=== PATIENT | male | born 1955 | race Caucasian/White ===

== ENCOUNTER 2019-10-17 07:54 | Inpatient (IN) | payer MEDICAID, MEDICARE ==
[2019-10-17] VITALS (8 sets, daily range): BP systolic 89–119; BP diastolic 45–78
[~2019-10-17] VITALS: Ht 165.1 cm; Wt 58.9 kg
[~2019-10-17 07:54] MED LIST: BUDE10.2 INH; CLA10T PO; DOXE25CA4 PO; FLO0.4C PO; GABA-532 PO; HYDR-3964 PO; IPRA3AMP31 NEB; NICO-731 TP; NOR5T PO; PANT-47 PO; RISP3TAB11 PO; SPIIN INH
[2019-10-17] MEDS ORDERED: octreotide inj. 1,250 MCG in normal saline 250ml IV soln 250 ML IV ONE (08:50)
[2019-10-17] MEDS ORDERED: pantoprazole 40 MG vial IV ONE (08:50)
[2019-10-17 09:08] LABS: BASOPHILS # (AUTO) 0.1 X10'3 (0-0.2); BASOPHILS % (AUTO) 0.5 % (0-1); EOSINOPHILS % (AUTO) 0 % (0-6); HEMATOCRIT 52.1 % (42.0-52.0); LYMPHOCYTES # (AUTO) 1.2 X10'3 (1.1-4.8); LYMPHOCYTES % (AUTO) 7.3 % (21-51); MEAN CORPUSCULAR HEMOGLOBIN 33.9 PG (27.0-31.0); MEAN CORPUSCULAR HGB CONC 35.1 g/dL (33.0-36.5); MEAN CORPUSCULAR VOLUME 96.6 FL (78-98); MONOCYTES # (AUTO) 2.1 X10'3 (0-0.9); MONOCYTES % (AUTO) 13.2 % (2-12); NEUTROPHILS # (AUTO) 12.6 X10'3 (1.8-7.7); PLATELET COUNT 314 X10'3 (140-440); RED BLOOD COUNT 5.39 X10'6 (4.70-6.10); RED CELL DISTRIBUTION WIDTH 13.7 % (11.5-14.5)
[2019-10-17 09:10] LABS: HEMOGLOBIN 18.3 g/dl (14.0-17.9)
[2019-10-17 09:21] LABS: OCCULT BLOOD STOOL NEGATIVE (Neg)
--- NOTE | 2019-10-17 09:21 | NUR ---
TANK SAYS TO WAIT ON DRIPS UNTIL SHE CONSULTS
[2019-10-17 09:24] LABS: ALANINE AMINOTRANSFERASE 24 U/L (12-78); ALBUMIN 4.4 G/DL (3.4-5.0); ALBUMIN/GLOBULIN RATIO 1.1 (1.1-1.5); ALKALINE PHOSPHATASE 81 IU/L (46-116); ANION GAP 18 (8-16); ASPARTATE AMINO TRANSFERASE 34 U/L (10-37); BILIRUBIN,TOTAL 1.2 MG/DL (0.1-1.0); BLOOD UREA NITROGEN 24 MG/DL (7-18); BUN/CREATININE RATIO 11.3 (5.4-32.0); CHLORIDE 82 MMOL/L (99-107); CREATININE 2.13 MG/DL (0.60-1.10); GLUCOSE 133 MG/DL (70-104); LIPASE 55 U/L (73-393); SODIUM 130 MMOL/L (135-145); TOTAL CARBON DIOXIDE 30.4 MMOL/L (24-32); TOTAL PROTEIN 8.5 G/DL (6.4-8.2); eGFR 31 ML/MIN
[2019-10-17 09:37] LABS: TROPONIN I 0.22 NG/ML (0.0-0.05)
[2019-10-17] MEDS ORDERED: normal saline 1000ML IV soln IVB ONE (09:45)
[2019-10-17] MEDS ORDERED: potassium Cl 10 mEq/100mL bag IV ONE (09:45)
[2019-10-17 10:05] LABS: TOTAL CELLS COUNTED 100
[2019-10-17 10:06] LABS: PLATELET ESTIMATE NORMAL
[2019-10-17 10:30] LABS: CLARITY,URINE SLIGHTLY CLOUDY (Clear); COLOR,URINE YELLOW (Yellow); GLUCOSE, URINE NEGATIVE (Neg); KETONES,URINE >=80 mg/dl (Neg); LEUKOCYTE ESTERASE ,URINE NEGATIVE (Neg); NITRITES, URINE NEGATIVE (Neg); OCCULT BLOOD,URINE MODERATE (Neg); PROTEIN,URINE 30 mg/dl (Neg); UROBILINOGEN,URINE 0.2 E.U/dL (0.2-1.0)
[2019-10-17 10:31] LABS: UA COLLECTION TYPE NON-SPECIFIED
[2019-10-17 10:36] LABS: SQUAMOUS EPITHELIAL CELL,UR FEW /LPF (FEW)
[2019-10-17 10:37] LABS: MUCUS STRANDS FEW /LPF (Neg)
[2019-10-17 10:38] LABS: TRANSITIONAL EPI CELLS,URINE FEW /HPF
[2019-10-17 10:39] LABS: RBC,URINE 0-2 /HPF (0-2); WBC,URINE 0-4 /HPF (0-4)
[2019-10-17 10:40] LABS: RENAL CELLS, URINE FEW /HPF
[2019-10-17 10:43] LABS: BACTERIA,URINE FEW /HPF (Neg); COARSE GRANULAR CAST 0-3 /LPF (NEGATIVE)
[2019-10-17] MEDS ORDERED: potassium CL 10mEq/100ml bag 100 ML IV PRN (11:00)
[2019-10-17] MEDS ORDERED: magnesium 4gm in 100ml NS 100 ML IV PRN (11:00)
[2019-10-17] MEDS ORDERED: magnesium Cl slow-release 64mg tablet PO PRN (11:00)
[2019-10-17] MEDS ORDERED: magnesium 2GM in 50ml NS 50 ML IV PRN (11:00)
[2019-10-17] MEDS ORDERED: potassium Cl 20 mEq SR tablet PO PRN (11:00)
[2019-10-17 11:07] LABS: HEMOGLOBIN 15.2 g/dl (14.0-17.9)
[2019-10-17 11:09] LABS: HEMATOCRIT 42.8 % (42.0-52.0); MEAN CORPUSCULAR HEMOGLOBIN 34.4 PG (27.0-31.0); MEAN CORPUSCULAR HGB CONC 35.6 g/dL (33.0-36.5); MEAN CORPUSCULAR VOLUME 96.9 FL (78-98); MEAN PLATELET VOLUME 7.5 FL (7.4-10.4); PLATELET COUNT 232 X10'3 (140-440); RED BLOOD COUNT 4.42 X10'6 (4.70-6.10); RED CELL DISTRIBUTION WIDTH 13.8 % (11.5-14.5); WHITE BLOOD COUNT 17.4 X10'3 (4.5-11.0)
[2019-10-17 11:19] LABS: ALANINE AMINOTRANSFERASE 15 U/L (12-78); ALBUMIN 3.4 G/DL (3.4-5.0); ALKALINE PHOSPHATASE 65 IU/L (46-116); ANION GAP 11 (8-16); ASPARTATE AMINO TRANSFERASE 34 U/L (10-37); BILIRUBIN,TOTAL 0.9 MG/DL (0.1-1.0); BLOOD UREA NITROGEN 22 MG/DL (7-18); BUN/CREATININE RATIO 13.2 (5.4-32.0); CALCIUM 8.1 MG/DL (8.5-10.1); CHLORIDE 90 MMOL/L (99-107); CREATININE 1.67 MG/DL (0.60-1.10); GLUCOSE 92 MG/DL (70-104); SODIUM 131 MMOL/L (135-145); TOTAL CARBON DIOXIDE 29.9 MMOL/L (24-32); TOTAL PROTEIN 6.7 G/DL (6.4-8.2); eGFR 41 ML/MIN
[2019-10-17] MEDS: pantoprazole 40MG/NS 100ML BAG 100 ML IV SCH ×3 (11:48→21:58)
[2019-10-17] MEDS: normal saline 1000ml 1,000 ML IV SCH ×3 (11:49→21:52)
[2019-10-17] MEDS ORDERED: OMEP-50 PO (12:09)
[2019-10-17] MEDS ORDERED: BUPR200T3 PO (12:09)
[2019-10-17] MEDS ORDERED: TRAZ-219 PO (12:09)
[2019-10-17] MEDS ORDERED: ALBU18HF2 PO (12:09)
[2019-10-17] MEDS ORDERED: FLUT1BLS4 PO (12:09)
--- NOTE | 2019-10-17 12:15 | NUR ---
Recieved report from ER Nurse DARRELL Reyes
[2019-10-17] MEDS ORDERED: pneumococcal 23-VAL P-sac vacc 25 mcg/0.5ml vial IMVAC ONE ×2 (12:30→17:00)
--- NOTE | 2019-10-17 14:17 | NUR ---
Arrived to 3027Z @ 1235 via gurney, he was able to transfer to bed with sba. Brought up by DARRELL Reyes
[2019-10-17] MEDS: potassium CL 10mEq/100ml bag 100 ML IV PRN ×7 (14:34→23:38)
[2019-10-17] MEDS ORDERED: fentaNYL/PF 50MCG/1 ML 2ML syringe ONE (17:12)
[2019-10-17] MEDS ORDERED: MIDAZolam 5mg/5ml vial ONE (17:12)
[2019-10-17] MEDS ORDERED: LIDOcaine Viscous 15ml cup ONE (17:12)
--- NOTE | 2019-10-17 18:36 | NUR ---
Problems reprioritized. Patient report given, questions answered & plan of care reviewed with DARRELL Cox.
--- NOTE | 2019-10-17 18:55 | NUR ---
Patient in room PCU 3025. I have received report from Fidel RAMÍREZ and had the opportunity to ask questions and assume patient care. patient just returned from the GI lab. He is still sleeping and is now resting with no sign of distress.
[2019-10-17] MEDS ORDERED: albuterol 2.5 MG/3 ML nebule NEB PRN (19:00)
[2019-10-17] MEDS ORDERED: fluconazole-Diflucan 100MG/NS 50 ML IV SCH (19:00)
[2019-10-17] MEDS ORDERED: ipratropium 0.5 MG/2.5ML nebule IH SCH (20:00)
[2019-10-17] MEDS ORDERED: ipratropium/albuterol 3ml nebule NEB SCH (21:00)
[2019-10-17] MEDS: budesonide 0.5mg/2ml UD nebule IH SCH (22:17)
[2019-10-18] MEDS: potassium CL 10mEq/100ml bag 100 ML IV PRN (00:50)
[2019-10-18 02:00] VITALS: BP 128/81
[2019-10-18] MEDS: pantoprazole 40MG/NS 100ML BAG 100 ML IV SCH ×2 (02:00→07:15)
[2019-10-18] MEDS: ipratropium/albuterol 3ml nebule NEB SCH ×2 (03:02→08:16)
[2019-10-18 06:00] VITALS: BP 113/69
--- NOTE | 2019-10-18 06:20 | NUR ---
Problems reprioritized. Patient report given, questions answered & plan of care reviewed with Lucien Bonilla RN.Patient is resting with no aparaent distress.
[2019-10-18 07:12] LABS: BASOPHILS % (AUTO) 0.1 % (0-1); EOSINOPHILS % (AUTO) 0 % (0-6); HEMOGLOBIN 12.9 g/dl (14.0-17.9); LYMPHOCYTES # (AUTO) 1.3 X10'3 (1.1-4.8); MEAN CORPUSCULAR HEMOGLOBIN 34.5 PG (27.0-31.0); MEAN CORPUSCULAR HGB CONC 34.9 g/dL (33.0-36.5); MEAN CORPUSCULAR VOLUME 98.6 FL (78-98); MONOCYTES # (AUTO) 1.4 X10'3 (0-0.9); NEUTROPHILS # (AUTO) 8.2 X10'3 (1.8-7.7); NEUTROPHILS % (AUTO) 74.9 % (42-75); PLATELET COUNT 199 X10'3 (140-440); RED BLOOD COUNT 3.75 X10'6 (4.70-6.10); RED CELL DISTRIBUTION WIDTH 14.1 % (11.5-14.5); WHITE BLOOD COUNT 10.9 X10'3 (4.5-11.0)
[2019-10-18] MEDS: tamsulosin 0.4mg capsule PO SCH (07:15)
[2019-10-18] MEDS: buPROPion SR 100mg tab PO SCH (07:16)
[2019-10-18 07:18] LABS: ALBUMIN 2.8 G/DL (3.4-5.0); ANION GAP 13 (8-16); BLOOD UREA NITROGEN 13 MG/DL (7-18); BUN/CREATININE RATIO 14.3 (5.4-32.0); CALCIUM 7.6 MG/DL (8.5-10.1); CHLORIDE 99 MMOL/L (99-107); CREATININE 0.91 MG/DL (0.60-1.10); GLUCOSE 86 MG/DL (70-104); MAGNESIUM 1.6 MG/DL (1.5-2.4); POTASSIUM 3.4 MMOL/L (3.5-5.1); SODIUM 133 MMOL/L (135-145); TOTAL CARBON DIOXIDE 20.9 MMOL/L (24-32); eGFR 83 ML/MIN
[2019-10-18] MEDS ORDERED: traZODone 150mg tablet PO SCH (08:00)
[2019-10-18] MEDS ORDERED: fluconazole 100mg tablet PO SCH (08:00)
[2019-10-18] MEDS: budesonide 0.5mg/2ml UD nebule IH SCH ×2 (08:15→20:30)
[2019-10-18] MEDS: potassium Cl 20 mEq SR tablet PO PRN (08:35)
[2019-10-18] MEDS: K and/or MAG REPLACEMENT MC SCH (08:40)
--- NOTE | 2019-10-18 08:47 | NUR ---
HR sustaining 160s, a-fib w/RVR, spoke with Dr. Jay, will get EKG stat, cardizem 5mg IVP and urine tox screen
[2019-10-18] MEDS ORDERED: diltiazem 5mg/ml 5ml inj. IV ONE ×2 (08:50→17:45)
[2019-10-18 11:00] VITALS: BP 103/66
[2019-10-18 12:15] LABS: URINE AMPHETAMINE SCREEN NEGATIVE (Neg); URINE BARBITUATE SCREEN NEGATIVE (Neg); URINE BENZODIAZEPINES SCREEN POSITIVE (Neg); URINE CANNABINOID SCREEN POSITIVE (Neg); URINE COCAINE SCREEN NEGATIVE (Neg); URINE METHADONE SCREEN NEGATIVE (Neg); URINE OPIATE SCREEN NEGATIVE (Neg); URINE PHENCYCLIDINE SCREEN NEGATIVE (Neg)
[2019-10-18] MEDS: fluconazole 100mg tablet PO SCH (12:24)
[2019-10-18 15:00] VITALS: BP 94/62
[2019-10-18] MEDS: levalbuterol 0.63mg/3ml nebule IH SCH ×2 (15:12→20:30)
--- NOTE | 2019-10-18 17:03 | NUR ---
HR [id number] again, EKG shows a-fib w/RVR. Dr Jay aware, gave 5mg IVP diltiazem per order, will continue to monitor
[2019-10-18] MEDS ORDERED: diltiazem 30mg tablet PO ONE (17:45)
[2019-10-18] MEDS: ondansetron/PF 4mg/2ml inj IV PRN (17:55)
--- NOTE | 2019-10-18 18:25 | NUR ---
Problems reprioritized. Patient report given, questions answered & plan of care reviewed with DARRELL Lomeli.
[2019-10-18 19:00] VITALS: BP 95/57
[2019-10-18] MEDS: diltiazem 30mg tablet PO SCH (20:00)
[2019-10-18 23:00] VITALS: BP 102/75
[2019-10-19] MEDS: levalbuterol 0.63mg/3ml nebule IH SCH ×4 (02:50→20:06)
[2019-10-19] MEDS: potassium Cl 20 mEq SR tablet PO PRN ×2 (02:52→07:40)
[2019-10-19] MEDS: diltiazem 30mg tablet PO SCH ×4 (02:52→20:39)
[2019-10-19 03:00] VITALS: BP 118/75
[2019-10-19 06:06] LABS: BASOPHILS % (AUTO) 0.3 % (0-1); EOSINOPHILS % (AUTO) 0.5 % (0-6); HEMATOCRIT 36.8 % (42.0-52.0); HEMOGLOBIN 12.6 g/dl (14.0-17.9); LYMPHOCYTES % (AUTO) 24.9 % (21-51); MEAN CORPUSCULAR HGB CONC 34.3 g/dL (33.0-36.5); MEAN CORPUSCULAR VOLUME 98.9 FL (78-98); MONOCYTES # (AUTO) 1.1 X10'3 (0-0.9); MONOCYTES % (AUTO) 14.2 % (2-12); NEUTROPHILS # (AUTO) 4.8 X10'3 (1.8-7.7); NEUTROPHILS % (AUTO) 60.1 % (42-75); PLATELET COUNT 203 X10'3 (140-440); RED BLOOD COUNT 3.72 X10'6 (4.70-6.10); RED CELL DISTRIBUTION WIDTH 13.7 % (11.5-14.5); WHITE BLOOD COUNT 7.9 X10'3 (4.5-11.0)
[2019-10-19 06:11] LABS: ALBUMIN 2.8 G/DL (3.4-5.0); ANION GAP 7 (8-16); BLOOD UREA NITROGEN 6 MG/DL (7-18); BUN/CREATININE RATIO 7.8 (5.4-32.0); CALCIUM 8.1 MG/DL (8.5-10.1); CHLORIDE 99 MMOL/L (99-107); CREATININE 0.77 MG/DL (0.60-1.10); GLUCOSE 108 MG/DL (70-104); MAGNESIUM 1.6 MG/DL (1.5-2.4); POTASSIUM 3.3 MMOL/L (3.5-5.1); SODIUM 133 MMOL/L (135-145); TOTAL CARBON DIOXIDE 26.8 MMOL/L (24-32); eGFR > 90 ML/MIN
--- NOTE | 2019-10-19 06:17 | NUR ---
Problems reprioritized. Patient report given, questions answered & plan of care reviewed with Olga RAMÍREZ.
[2019-10-19 07:00] VITALS: BP 107/69
--- NOTE | 2019-10-19 07:22 | NUR ---
Patient in room PCU 3025. I have received report from Yani and had the opportunity to ask questions and assume patient care.
[2019-10-19] MEDS: tamsulosin 0.4mg capsule PO SCH (07:39)
[2019-10-19] MEDS: buPROPion SR 100mg tab PO SCH (07:39)
[2019-10-19] MEDS: fluconazole 100mg tablet PO SCH (07:49)
[2019-10-19] MEDS: K and/or MAG REPLACEMENT MC SCH (07:50)
[2019-10-19] MEDS: budesonide 0.5mg/2ml UD nebule IH SCH ×2 (08:00→20:06)
[2019-10-19] MEDS: ondansetron/PF 4mg/2ml inj IV PRN ×3 (08:25→20:42)
--- NOTE | 2019-10-19 08:30 | NUR ---
Patient did not tolerate diet well this AM. Patient continues on full liquid diet and shortly after meal, he began dry heaving and complained of severe nausea. Patient was given IV Zofran with effective results. Diet not advanced, MD is aware and the patient will stay another day for observation. Will continue to monitor.
[2019-10-19 11:00] VITALS: BP 121/82
[2019-10-19 15:00] VITALS: BP 140/80
[2019-10-19 18:00] VITALS: BP 139/80
--- NOTE | 2019-10-19 18:44 | NUR ---
Problems reprioritized. Patient report given, questions answered & plan of care reviewed with Alyssa.
--- NOTE | 2019-10-19 18:45 | NUR ---
Patient in room U 3025. I have received report from DARRELL Espinoza and had the opportunity to ask questions and assume patient care. Pt resting with eyes closed. no complaints at this time. Addendum: 10/19/19 at 1846 by Tiburcio Agarwal RN Amended: Links added.
[2019-10-19 22:00] VITALS: BP 125/81
[2019-10-20] MEDS: diltiazem 30mg tablet PO SCH ×3 (02:09→13:16)
[2019-10-20 02:10] VITALS: BP 106/72
[2019-10-20] MEDS: levalbuterol 0.63mg/3ml nebule IH SCH ×3 (02:16→15:25)
[2019-10-20 05:23] LABS: BASOPHILS % (AUTO) 0.4 % (0-1); EOSINOPHILS # (AUTO) 0.1 X10'3 (0-0.9); EOSINOPHILS % (AUTO) 0.8 % (0-6); HEMATOCRIT 38.7 % (42.0-52.0); HEMOGLOBIN 13.5 g/dl (14.0-17.9); LYMPHOCYTES # (AUTO) 2.3 X10'3 (1.1-4.8); LYMPHOCYTES % (AUTO) 31.2 % (21-51); MEAN CORPUSCULAR HEMOGLOBIN 34.4 PG (27.0-31.0); MEAN CORPUSCULAR HGB CONC 34.9 g/dL (33.0-36.5); MEAN CORPUSCULAR VOLUME 98.7 FL (78-98); MEAN PLATELET VOLUME 6.9 FL (7.4-10.4); MONOCYTES # (AUTO) 1.1 X10'3 (0-0.9); MONOCYTES % (AUTO) 15.1 % (2-12); NEUTROPHILS # (AUTO) 3.8 X10'3 (1.8-7.7); NEUTROPHILS % (AUTO) 52.5 % (42-75); PLATELET COUNT 220 X10'3 (140-440); RED BLOOD COUNT 3.92 X10'6 (4.70-6.10); RED CELL DISTRIBUTION WIDTH 13.4 % (11.5-14.5); WHITE BLOOD COUNT 7.3 X10'3 (4.5-11.0)
[2019-10-20 05:35] LABS: ANION GAP 11 (8-16); BLOOD UREA NITROGEN 6 MG/DL (7-18); BUN/CREATININE RATIO 8.3 (5.4-32.0); CALCIUM 8.4 MG/DL (8.5-10.1); CHLORIDE 97 MMOL/L (99-107); CREATININE 0.72 MG/DL (0.60-1.10); GLUCOSE 118 MG/DL (70-104); MAGNESIUM 1.5 MG/DL (1.5-2.4); POTASSIUM 3.1 MMOL/L (3.5-5.1); SODIUM 130 MMOL/L (135-145); eGFR > 90 ML/MIN
[2019-10-20 06:00] VITALS: BP 153/82
--- NOTE | 2019-10-20 06:35 | NUR ---
Problems reprioritized. Patient report given, questions answered & plan of care reviewed with DARRELL GOMEZ. Addendum: 10/20/19 at 0635 by Tiburcio Agarwal RN Amended: Links added.
[2019-10-20] MEDS: fluconazole 100mg tablet PO SCH (07:16)
[2019-10-20] MEDS: K and/or MAG REPLACEMENT MC SCH (07:16)
[2019-10-20] MEDS: potassium Cl 20 mEq SR tablet PO PRN (07:16)
[2019-10-20] MEDS: buPROPion SR 100mg tab PO SCH (07:17)
[2019-10-20] MEDS: tamsulosin 0.4mg capsule PO SCH (07:17)
[2019-10-20] MEDS: budesonide 0.5mg/2ml UD nebule IH SCH (09:30)
[2019-10-20 09:35] LABS: TOTAL CELLS COUNTED 100
[2019-10-20 09:36] LABS: GIANT PLATELET FEW; PLATELET ESTIMATE NORMAL
[2019-10-20 11:00] VITALS: BP 119/74
[2019-10-20] MEDS ORDERED: DILT240C90 PO (12:25)
[2019-10-20] MEDS ORDERED: FLUC100T9 PO (12:25)
[2019-10-20] MEDS ORDERED: potassium Cl 20 mEq SR tablet PO STA (12:41)
[2019-10-20] MEDS: ondansetron/PF 4mg/2ml inj IV PRN (12:53)
[2019-10-20] MEDS ORDERED: ONDA4TAB6 PO (12:54)
[2019-10-20 15:00] VITALS: BP 134/81
--- NOTE | 2019-10-20 17:04 | NUR ---
DC prescriptions called in to [facility] on [address]
--- NOTE | 2019-10-20 17:30 | NUR ---
Pt discharged to son and son's spouse who are his usual caregivers. IV taken out, Tele dc'd and returned. All belongings taken from room. Pt and family educated on medications and meds called into [facility] in [facility] per son's request. Pt is stable with some intermittent nausea. Dr Jay aware of sodium and potassium levels. Replacement K+ given prior to discharge. All belongings taken from room. All questions answered.
== END 2019-10-20 17:50 | disposition home or self-care (01) | DRG 391 ==
LOC: ER 07:54 → ED HOLD 11:32 → PCU 3S 13:03
PROVIDERS: ADMIT Internal Medicine; ATTEND Internal Medicine
PROC: 0DB58ZX Excision of Esophagus, Via Natural or Artificial Opening Endoscopic, Diagnostic (ICD-10-PCS; principal; 2019-10-17)
PROC: 3E0234Z Introduction of Serum, Toxoid and Vaccine into Muscle, Percutaneous Approach (ICD-10-PCS; 2019-10-17)
DX: K21.0 Gastro-esophageal reflux disease with esophagitis (principal); N17.0 Acute kidney failure with tubular necrosis; K92.0 Hematemesis; E87.1 Hypo-osmolality and hyponatremia; K70.9 Alcoholic liver disease, unspecified; K22.70 Barrett's esophagus without dysplasia; D75.1 Secondary polycythemia; B18.2 Chronic viral hepatitis C; E86.9 Volume depletion, unspecified; F10.20 Alcohol dependence, uncomplicated; E87.6 Hypokalemia; I48.91 Unspecified atrial fibrillation; K44.9 Diaphragmatic hernia without obstruction or gangrene; F12.90 Cannabis use, unspecified, uncomplicated; F17.210 Nicotine dependence, cigarettes, uncomplicated; F31.9 Bipolar disorder, unspecified; M19.90 Unspecified osteoarthritis, unspecified site; R00.0 Tachycardia, unspecified; I10 Essential (primary) hypertension; J44.9 Chronic obstructive pulmonary disease, unspecified; N40.0 Benign prostatic hyperplasia without lower urinary tract symptoms; Z80.1 Family history of malignant neoplasm of trachea, bronchus and lung; Z80.8 Family history of malignant neoplasm of other organs or systems; Z23 Encounter for immunization
CPT/HCPCS: 36415; 43239; 71045; 80048; 80053; 80305; 81001; 82272; 83605; 83690; 83735; 84145; 84484; 85025; 85027; 85610; 86885; 86900; 86901; 87040; 87081; 88305; 88312; 90732; 93005; 93306; 94640; 94760; 96374; 96375; 99152; 99285; A4620; C9113; G0378; J1450; J2250; J2354; J2405; J3010; J3480; J3490; J7030; J7040; J7050; J7614; J7626

== ENCOUNTER 2025-03-02 11:11 | Emergency (ER) | payer OTHER, MEDICARE, MEDICAID ==
[~2025-03-02] VITALS: Ht 167.6 cm; Wt 54.5 kg
[~2025-03-02 11:11] MED LIST changes: +ALBU18HF2 PO; +AMLO2.5T5 PO; -BUDE10.2 INH; +CHOL400T8 PO; -CLA10T PO; +CYAN500T71 PO; +DOCU100C40 PO; -DOXE25CA4 PO; +FINA5TAB11 PO; -FLO0.4C PO; +FLUT1BLS4 PO; +FOLI0.4T6 PO; -GABA-532 PO; -HYDR-3964 PO; +LOP25T PO; -NICO-731 TP; -NOR5T PO; +ONDA4TAB6 PO; -PANT-47 PO; +PANT40TA54 PO; -RISP3TAB11 PO; -SPIIN INH; +SUCR1TAB PO; +TAMS-55 PO; +TRAZ-256 PO
[2025-03-02 12:14] LABS: BASOPHILS % (AUTO) 0.5 % (0-1); EOSINOPHILS # (AUTO) 0.1 X10'3 (0-0.9); EOSINOPHILS % (AUTO) 1.6 % (0-6); HEMATOCRIT 38.7 % (42.0-52.0); HEMOGLOBIN 12.8 g/dl (14.0-17.9); LYMPHOCYTES # (AUTO) 2.3 X10'3 (1.1-4.8); MEAN CORPUSCULAR HEMOGLOBIN 32.4 PG (27.0-31.0); MEAN CORPUSCULAR HGB CONC 33.2 g/dL (33.0-36.5); MEAN CORPUSCULAR VOLUME 97.6 FL (78-98); MEAN PLATELET VOLUME 6.9 FL (7.4-10.4); MONOCYTES # (AUTO) 1.1 X10'3 (0-0.9); MONOCYTES % (AUTO) 12.4 % (2-12); NEUTROPHILS % (AUTO) 58.5 % (42-75); PLATELET COUNT 241 X10'3 (140-440); RED BLOOD COUNT 3.96 X10'6 (4.70-6.10); RED CELL DISTRIBUTION WIDTH 14.9 % (11.5-14.5); WHITE BLOOD COUNT 8.6 X10'3 (4.5-11.0)
[2025-03-02 12:19] LABS: ALANINE AMINOTRANSFERASE 15 U/L (12-78); ALBUMIN 3.5 G/DL (3.4-5.0); ALBUMIN/GLOBULIN RATIO 1.3 (1.1-1.5); ALKALINE PHOSPHATASE 94 IU/L (46-116); ANION GAP 8 (8-16); ASPARTATE AMINO TRANSFERASE 13 U/L (10-37); BILIRUBIN,TOTAL 0.3 MG/DL (0.1-1.0); BLOOD UREA NITROGEN 15 MG/DL (7-18); BUN/CREATININE RATIO 16.9 (10.0-20.0); CALCIUM 8.5 MG/DL (8.5-10.1); CHLORIDE 98 MMOL/L (99-107); CREATININE 0.89 MG/DL (0.60-1.10); GLUCOSE 90 MG/DL (70-104); POTASSIUM 4.2 MMOL/L (3.5-5.1); SODIUM 132 MMOL/L (135-145); TOTAL CARBON DIOXIDE 26.3 MMOL/L (24-32); TOTAL PROTEIN 6.3 G/DL (6.4-8.2); eCRCL 59 ML/MIN; eGFR 84 ML/MIN
[2025-03-02 12:27] LABS: PRO BRAIN NATRIURETIC PEPTIDE 174 PG/ML (0-125)
[2025-03-02] MEDS ORDERED: HYDR-3965 PO (15:48)
[2025-03-02] MEDS ORDERED: DICL100G59 TOP (15:48)
[2025-03-02 17:26] VITALS: BP 146/86; PULSE 78; RESP 18; TEMP 98.5; O2SAT 98
== END 2025-03-02 17:27 | disposition home or self-care (01) ==
LOC: ER 11:11
DX: S82.51XA Displaced fracture of medial malleolus of right tibia, initial encounter for closed fracture (principal); F10.20 Alcohol dependence, uncomplicated; I10 Essential (primary) hypertension; J44.9 Chronic obstructive pulmonary disease, unspecified; Z88.8 Allergy status to other drugs, medicaments and biological substances; W01.0XXA Fall on same level from slipping, tripping and stumbling without subsequent striking against object, initial encounter; Y93.89 Activity, other specified; Y92.89 Other specified places as the place of occurrence of the external cause; Y99.8 Other external cause status; Y90.9 Presence of alcohol in blood, level not specified
CPT/HCPCS: 29515; 36415; 71045; 73610; 80053; 83880; 84484; 85025; 93005; 99285; A6449